=== PATIENT | female | born 1985 | race Caucasian/White ===

== ENCOUNTER → 2018-11-01 15:55 | Outpatient (CLI) | payer OTHER, SELFPAY ==
[2017-02-17 07:19] VITALS: BMI 31.0
[2018-11-06 10:35] LABS: HPV HC, High Risk Negative (Negative)
== END ==
PROVIDERS: Referring Provider Obstetrics & Gynecology; Visit Provider Obstetrics & Gynecology
DX: Z12.4 Encounter for screening for malignant neoplasm of cervix (principal)
CPT/HCPCS: 87624; 88175; G0145

== ENCOUNTER 2019-12-11 02:45 | Inpatient (IN) | payer OTHER, SELFPAY ==
[2019-01-10 16:12] VITALS: BMI 31.0
[2019-12-11] VITALS (56 sets, daily range): BP systolic 98–161; BP diastolic 54–99; PULSE 73–126; RESP 14–18; TEMP 36.3–37.3; O2SAT 94–100; BMI 30.1
[2019-12-11 02:44] LABS: ROM Internal Control Test YES-OK TO RESULT pt. (Internal QC)
[2019-12-11 02:45] LABS: ROM Patient Test POSITIVE (Negative)
[2019-12-11] MEDS: Lactated Ringers 1,000 ML 200 ML IV ×2 (03:05→10:23)
[2019-12-11 03:32] LABS: Hemoglobin 12.5 g/dL (12.0-15.0); Mean Corp Hgb Conc 32.9 g/dL (32-36); Mean Corpuscular Hgb 27.5 pg (27.0-32.0); Mean Corpuscular Volume 83.5 fL (81-99); RBC Distribution Width CV 14.6 % (11.6-14.6); RBC Distribution Width SD 42.5 fl (35.1-43.9); Red Blood Count 4.55 M/mm3 (4.2-5.4); White Blood Count 10.9 K/mm3 (4.4-11.0)
[2019-12-11 03:33] LABS: Absolute Lymphocyte Count 2.56 X10^3/uL (0.83-4.51); Absolute Neutrophil Count 7.3 X10^3/uL (2.0-7.7); Basophil# 0.04 X10^3/uL; Basophil% 0.4 % (0-1); Eosinophils% 0.9 % (0-5); Lymphocyte # 2.56 X10^3/ul (4.0); Lymphocyte % 23.4 % (19-41); Mean Platelet Vol. 11.4 fl (6.2-12.0); Monocyte# 0.83 X10^3/uL; Monocyte% 7.6 % (0-10); NRBC Flagged by Analyzer 0 % (0-5); Neutrophil # 7.33 X10^3/uL (2.7-7.7); Neutrophil % 67.1 % (47-70); Platelet Count 257 K/mm3 (150-450)
[2019-12-11] MEDS: Lactated Ringers 500 ML 999 ML IV (03:46)
[2019-12-11] MEDS: fentaNYL-bupivacaine (epidural) 100 ML BAG EPIDURAL ×2 (04:43→10:23)
[2019-12-11] MEDS: Oxytocin 30 units/NS 500 ml 30 UNITS/500 ML IV.SOLN IV (08:18)
--- NOTE | 2019-12-11 09:20 | PN.OBGYN_ITS ---
Subjective: Patient seen at bedside. Feeling well. Denies any pain due to epidural placement. CE by RN 4.5/75/-2 Objective: CE by RN 4.5/75/-2 S.R.O.M 12/11/19 at 0045 Clear fluid Category 1 tracing - Physical Exam Vitals/I&O's: Vital Signs Temp Pulse BP Pulse Ox 98.2 F 98 120/78 99 12/11/19 07:59 12/11/19 08:51 12/11/19 08:51 12/11/19 08:51 Weight: 170 lb Body Mass Index (BMI) 30.1 Intake and Output for Last 24 Hours 12/09/19 12/10/19 12/11/19 23:59 23:59 23:59 Intake Total 634.43 / 634.43 Balance 634.43 / 634.43 General: Alert, Cooperative Lungs: Normal air movement Cardiovascular: Regular rate Abdomen: Soft, Obese Skin: No rashes Neurological: Cranial nerves II-XII grossly intact Psych/Mental Status: Normal Affect, Appropriate Laboratory Results 12/11/19 02:30: Vag Amniotic Fld Detect POSITIVE H 12/11/19 03:04: WBC 10.9, RBC 4.55, Hgb 12.5, Hct 38.0, MCV 83.5, MCH 27.5, MCHC 32.9, RDW Std Deviation 42.5, RDW Coeff of Emeterio 14.6, Plt Count 257, MPV 11.4, Immature Gran % (Auto) 0.600, Neut % (Auto) 67.1, Lymph % (Auto) 23.4, [place] % (Auto) 7.6, Eos % (Auto) 0.9, Baso % (Auto) 0.4, Absolute Neuts (auto) 7.3, Absolute Lymphs (auto) 2.56, Nucleated RBC % 0 12/11/19 03:04: Blood Type B POSITIVE, Antibody Screen NEGATIVE Current Medications Acetaminophen (Tylenol) 325 - 650 mg PO Q4H PRN PRN PRN Reason: Pain Score 1-3/10 Al Hydroxide/Mg Hydroxide (Mylanta Ii) 15 - 30 ml PO Q4H PRN PRN PRN Reason: INDIGESTION Citric Acid/Sodium Citrate (Bicitra) 30 ml PO X1 PRN PRN Reason: Section Ephedrine Sulfate () 10 mg IV Q10M PRN PRN Reason: hypotension Ephedrine Sulfate () 10 mg IM Q30M PRN PRN Reason: hypotension Fentanyl Citrate (Sublimaze (100mcg Ampule)) 25 - 50 mcg IV Q2H PRN PRN PRN Reason: Pain Score 4-10/10 Fentanyl/Bupivacaine/Sodium Chlor () 0 ml EPIDURAL UD [facility]; Protocol Last Admin: 12/11/19 04:43 Dose: 100 ml Documented by: Lactated Ringer's () 500 mls @ 999 mls/hr IV .Q31M PRN PRN Reason: Epidural Last Infusion: 12/11/19 08:07 Dose: Infused Documented by: Lactated Ringer's () 500 mls @ 999 mls/hr IV .Q31M PRN PRN Reason: Corrective Measures Lactated Ringer's () 1,000 mls @ 50 mls/hr IV .Q20H [facility] Last Infusion: 12/11/19 04:50 Dose: 200 mls/hr Documented by: Naloxone HCl 4 mg/ Dextrose 504 mls @ 0 mls/hr IV .Q0M PRN; Protocol PRN Reason: To maintain Resp. rate >10 Oxytocin/Sodium Chloride () 30 units in 500 mls @ 2 mls/hr IV .Q250H [facility] Last Infusion: 12/11/19 08:51 Dose: 4 mls/hr Documented by: Nalbuphine HCl (Nubain) 5 mg IV Q3H PRN PRN PRN Reason: ITCHING Naloxone HCl (Narcan) 0.02 mg IV Q1M PRN PRN Reason: RR< 10 AND PT UNRESPONSIVE Ondansetron HCl (Zofran) 4 mg IV Q4H PRN PRN PRN Reason: NAUSEA Prochlorperazine Edisylate (Compazine Iv) 10 mg IV Q6H PRN PRN PRN Reason: NAUSEA Sodium Chloride () 10 - 40 ml IV X1 PRN PRN Reason: SALINE FLUSH Medical Necessity - Tobacco Use Smoking Status: Never smoker Assessment/Plan Patient is a 34 year old at 39.4 weeks gestation here for labor- S.R.O.M 0045 on 12/11/19 A/P Term gestation NST- reactive, Category 1 tracing S.R.O.M for clear fluid 12/11/19 at 0045 Continuous EFM and TOCO Continue titration of pitocin Dr. Barrios aware of plan of care and agrees.
[2019-12-11] MEDS: Amnioinfusion- 0.9% NS 1,000 ML IV.SOLN. 150 ML INTRA-UTER (10:58)
[2019-12-11] MEDS: Oxytocin 30 units/NS 500 ml 30 UNITS/500 ML IV.SOLN 334 UNITS IV (11:34)
--- NOTE | 2019-12-11 11:59 | PCM.OPRPT ---
Report of Operation Date of Procedure: 12/11/19 Vaginal Delivery Maternal Presentation: Active Labor Amniotic Membrane Rupture Type: Artificial Amniotic Fluid Description: Clear Final ROSS: 12/14/19 Gestational age: 39 Weeks and 4 Days Date of Procedure: 12/11/19 Pre-Operative Diagnosis: labor Post-Operative Diagnosis: same Surgery/ Procedure Performed: Spontaneous Vaginal Delivery Type of Anesthesia: Epidural Description of Procedure: A vigorous male was delivered KACI over a second-degree perineal laceration. A loose nuchal x2 was easily reduced. The remainder the was delivered with maternal pushing and gentle traction only in less than 15 seconds. The Pitocin infusion was initiated for active management of the third stage. The cord was clamped and cut after 1 minute. The was attended to by the waiting nursing staff. The placenta was delivered spontaneously and intact. The cervix and vagina were intact. The second-degree perineal laceration was repaired with 3-0 Vicryl suture in a running standard fashion. Sponge and needle counts were correct. A vaginal sweep was completed by me. Presentation: KACI Placental Delivery Description: Spontaneous Placenta Disposition: [facility] Cord Vessel Description: 3 Vessels Nuchal Cord Compression: Without compression Cord Entanglement: Around neck x 2, loose Drain: Dove to straight drain Estimated Blood Loss: 300 A gender: Male - HOLLAND (1 minute): 8 (5 minute): 9 Episiotomy Description: None Laceration: 2nd degree Medications given after delivery: IV Pitocin Complications: None
--- NOTE | 2019-12-11 12:05 | PCM.HP.OB ---
History Date of Admission: 02/17/17 Final ROSS: 12/14/19 Final ROSS Source: US <20 weeks Gestational age: 39 Weeks and 4 Days History of this : This is a 34 year-olD 5 para 3-0-1-3 presents at 39-4/7 weeks gestation with spontaneous rupture membranes. She denies any gross vaginal bleeding. She is had good movement. She has been complicated to date by advanced maternal age. Allergies No Known Allergies Allergy (Verified 01/10/19 16:12) Home Medications: Home Medications Vits [Prenatabs FA ] 1 tablet PO DAILY@1200 #0 tablet 10/24/14 Smoking Status: Never smoker Alcohol: None Substance Use Type: Alcohol Number of Fetus(es): 1 History Past Pregnancies: Past Pregnancies Delivery Date Name GA/ Weeks Outcome Route Wt Infant Sex Labor Length Anesthesia Delivery Location Provider FOB Review of Systems Constitutional: Denies: Chills, Fever Eyes: Denies: Blurred vision Cardiovascular: Denies: Chest Pain Respiratory: Denies: Cough, Shortness of Breath Gastrointestinal: Denies: Abdominal Pain, Diarrhea Genitourinary: Denies: Dysuria Skin: Denies: Rash Hematologic/ Lymphatic: Denies: Anemia Physical Exam Vitals: Vital Signs Temp Pulse BP Pulse Ox 99.1 F 88 107/69 98 12/11/19 11:59 12/11/19 11:59 12/11/19 11:59 12/11/19 10:11 General: Alert, Cooperative, No apparent distress Cardiovascular: Regular rate Lungs: Normal air movement Abdomen: Soft, Non Tender, Non-Distended, Gravid Extremities:: No edema Neurological: Cranial nerves II-XII grossly intact CULINARY SPECIALIST: Normal external genitalia Estimated gestational size: Appropriate for gestational size Presentation: Cephalic Assessment/Plan This is a 34 year-old, 5 para 3-0-1-3 at 39-4/7 weeks with spontaneous rupture membranes and spontaneous labor. Augmentation with Pitocin as needed. May have epidural as needed for pain control. Estimated weight is less than 4000 g clinically and pelvis clinically adequate to expect vaginal delivery.
[2019-12-11] MEDS: Acetaminophen 500 MG Tablet 1000 MG PO (18:53)
[2019-12-11] MEDS: Naproxen 250 MG Tablet 500 MG PO (20:55)
[2019-12-11] MEDS: Senna/Docusate Sodium 1 Tablet PO (20:56)
[2019-12-12] VITALS (7 sets, daily range): BP systolic 124–132; BP diastolic 78–97; PULSE 69–88; RESP 18–20; TEMP 36.3–36.7
[2019-12-12] MEDS: Acetaminophen 500 MG Tablet 1000 MG PO (03:36)
[2019-12-12] MEDS: Naproxen 250 MG Tablet 500 MG PO (09:39)
--- NOTE | 2019-12-12 13:22 | PCM.PN.OB ---
Subjective: Patient doing well. Pain controlled. Denies fevers, chills, chest pain, shortness of breath, leg pain, lightheadedness, dizziness. Ambulating voiding without difficulty. Tolerating regular diet without nausea or vomiting. She is breast-feeding without complaints. She desires to go home today. - Physical Exam Vitals/I&O's: Vital Signs Temp Pulse Resp BP Pulse Ox 98.0 F 82 18 124/82 H 98 12/12/19 12:00 12/12/19 12:07 12/12/19 12:00 12/12/19 12:07 12/11/19 10:11 Oxygen Delivery Method Room Air Weight: 170 lb Body Mass Index (BMI) 30.1 Intake and Output for Last 24 Hours 12/10/19 12/11/19 12/12/19 23:59 23:59 23:59 Intake Total 2250.50 / 2250.50 Balance 2250.50 / 2250.50 General: Alert, No apparent distress HEENT: Atraumatic Extremities: No edema Skin: No rashes Neurological: Neuro grossly intact Psych/Mental Status: Normal Affect, Appropriate Current Medications Acetaminophen (Tylenol) 1,000 mg PO Q8H PRN PRN PRN Reason: Pain Score 1-3 Last Admin: 12/12/19 03:36 Dose: 1,000 mg Documented by: Bisacodyl (Dulcolax) 10 mg RECTAL UD PRN PRN Reason: If no BM Dibucaine (Dibucaine) 1 applic TOPICAL TID PRN PRN; Protocol PRN Reason: Discomfort Hydrocortisone (Hytone) 1 applic TOPICAL TID PRN PRN; Protocol PRN Reason: Discomfort Methylergonovine Maleate (Methergine) 0.2 mg IM X1 PRN PRN Reason: Excess bleeding/uterine atony Naproxen (Naprosyn) 500 mg PO Q8H PRN PRN PRN Reason: Pain Score 1-310 Last Admin: 12/12/19 09:39 Dose: 500 mg Documented by: Ondansetron HCl (Zofran) 4 mg IV Q4H PRN PRN PRN Reason: Nausea Senna/Docusate Sodium (Senokot-S, Patti-Colace) 1 - 2 tablet PO DAILY PRN PRN PRN Reason: Constipation Last Admin: 12/11/19 20:56 Dose: 2 tablet Documented by: Simethicone (Mylicon) 80 mg PO PCHS PRN PRN Reason: Indigestion/Stomach pain Sodium Chloride () 5 - 15 ml IV UD PRN PRN Reason: SALINE FLUSH Medical Necessity - Tobacco Use Smoking Status: Never smoker Assessment/Plan Patient is day 1 from a vaginal delivery. She is doing well and desires to go home. Discharge instructions reviewed.
--- NOTE | 2019-12-12 13:25 | DCINST_ITS ---
Discharge Diet: No Restrictions Discharge Activity: May Drive, May Shower, May Take a Tub Bath May resume sexual activity in: 6 weeks Ice area for (Minutes): 15 Weight Bearing Status: Full weight bearing Lifting Restrictions: None Call your doctor if you observe: Fever of 101 or Higher, Inability to urinate, Inability to have a bowel movement, Using more than one pad per hour, Shortness of breath, Dizziness, Fainting spells, Chest pain, Increased palpitations (irregular heartbeat), Calf discomfort, Uncontrolled pain Cleanse incision/area with: Soap & Water Additional Instructions: If you experience any of the following, contact your healthcare provider. * Bleeding that soaks a pad every hour for 2 hours * Fever 100.4 or higher * Unrelieved incision or abdominal pain * Swelling, redness, discharge or bleeding from your incision or episiotomy site * Your incision begins to separate * Problems urinating (including inability to urinate or burning while urinating). * Visual changes * Severe headache * Flu-like symptoms * Pain or redness in one of both of your breasts * Pain, warmth, tenderness or swelling in your legs, especially the calf area * Frequent nausea and vomiting * Symptoms of depression or anxiety If you experience any of the following, call 911 or go to the nearest Emergency Room. * Chest pain * Problems breathing * Seizure activity * Partial or complete paralysis of a body part, slurred speech, weakness or drooping of the face, or a sudden inability to walk or hold your balance Allergies/Adverse Reactions: Allergies No Known Allergies Allergy (Verified 01/10/19 16:12) Medications to take at Discharge Vits [Prenatabs FA ] 1 tablet PO DAILY@1200 #0 tablet 10/24/14 When: 6 weeks for visit. May be virtual visit Primary Care Physician: Care Physician,No Primary [Primary Care Provider] - Test Results: Test results from this visit will be discussed in further detail at your follow- up appointment, if applicable.
== END 2019-12-12 16:50 | disposition home or self-care (01) | DRG 807 ==
LOC: WPOUT 02:46 → WP 02:46
PROVIDERS: Obstetrics & Gynecology; Admitting Provider Obstetrics & Gynecology; Visit Provider Obstetrics & Gynecology
DX: O69.81X0 Labor and delivery complicated by cord around neck, without compression, not applicable or unspecified (principal); Z37.0 Single live birth; Z3A.39 39 weeks gestation of pregnancy; O70.1 Second degree perineal laceration during delivery
CPT/HCPCS: 59025; 59050; 84112; 85025; 86850; 86900; 86901; 99218; J7030; J7120; G0378